=== PATIENT | female | born 1990 | race Caucasian/White ===

== ENCOUNTER 2024-01-11 08:26 | Outpatient (CLI) | payer BC, SELFPAY ==
--- NOTE | 2024-01-11 08:45 | CRLHL7_ITS ---
For Patients: As a result of the Cures Act, medical imaging exams and procedure reports are released immediately into your electronic medical record. You may view this report before your referring provider. If you have questions, please contact your health care provider. DIGITAL DIAGNOSTIC LEFT MAMMOGRAM USING TOMOSYNTHESIS AND COMPUTER-AIDED DETECTION LEFT BREAST ULTRASOUND CLINICAL HISTORY: LEFT breast pain. COMPARISON: None. TECHNIQUE: Digital LEFT mammogram in two projections with computer-aided detection. Tomosynthesis was used in this interpretation. Real-time ultrasound imaging of LEFT breast with imaging documentation. BREAST COMPOSITION: The breasts are almost entirely fatty. FINDINGS: 3D spot compression CC/MLO LEFT breast mammogram images submitted. Implant is intact. No suspicious mass or architectural distortion. No suspicious calcifications or adenopathy. Targeted LEFT breast ultrasound performed at 2 o`clock 13 cm from the nipple. Normal breast tissue is present. No fibrocystic change or mass. No implant rupture. IMPRESSION: No suspicious findings. RECOMMENDATIONS: Clinical follow-up. Age-appropriate screening mammography. BI-RADS Category 2: Benign A lay language report of this examination will be provided to the patient. Dictated by Eb Coley MD @ 01/11/2024 11:46:55 AM jj/Dictated by: Eb Coley MD @ 01/11/2024 11:46:00 AM (Electronically Signed)
--- NOTE | 2024-01-11 09:15 | CRLHL7_ITS ---
For Patients: As a result of the Century Cures Act, medical imaging exams and procedure reports are released immediately into your electronic medical record. You may view this report before your referring provider. If you have questions, please contact your health care provider. PLEASE SEE DIGITAL DIAGNOSTIC LEFT MAMMOGRAM PERFORMED SAME DAY CRL:[email or web address] [email or web address]/Dictated by: Eb Coley MD @ 01/11/2024 11:47:00 AM (Electronically Signed)
== END 2024-01-11 08:27 | disposition home or self-care (01) ==
LOC: MAMMO 08:27
PROVIDERS: Visit Provider Physician Assistant
DX: N64.4 Mastodynia (principal)
CPT/HCPCS: 76642; 77065; G0279